=== PATIENT | male | born 1985 | race Caucasian/White ===

== ENCOUNTER → 2024-02-21 23:01 | Day surgery (SDC) | payer BC, SELFPAY ==
[2024-02-21 21:01] VITALS: BP 147/96
[2024-02-21] MEDS: GlucaGen 1 MG IV (22:19)
--- NOTE | 2024-02-21 22:48 | ED.GENMED ---
History of Present Illness
General
Chief Complaint: Throat Problem
Source: patient
Exam Limitations: none
Time Seen by Provider: 02/21/24 22:24
Nursing documentation reviewed up to this point in time: agreed with
Travel History
Have you had any contact with someone who has COVID-19?: No
Do you have any symptoms of coronavirus? Fever > 100 degrees, chills, cough, shortness of breath, sore throat, loss of taste or smell, muscle aches, or headache?: No
History of Present Illness
History of Present Illness:
38-year-old male with history of GERD who presents to the emergency department for evaluation after a piece of chicken became stuck when he swallowed it. He says he was eating a chicken breast tonight and he swallowed a large piece without
adequately chewing. He says that he felt to get stuck midway down his esophagus and has not been able to swallow since. He has been spitting up saliva. He has tried drinking soda and water without improvement. He waited about an hour and a half
before coming to the emergency room. He denies any coughing or choking, no breathing issues. Denies any other complaints.
Review of Systems
Review of Systems
All Other Systems: ROS reviewed and negative except as documented in HPI and ROS
ABD/GI: Reports nausea and other (Esophageal food bolus)
Phy Exam
Physical Exam
Physical Exam:
General: Awake, alert, oriented x3; sitting up spitting into basin
Head: Normocephalic, atraumatic
Eyes: Conjunctiva normal
Throat: Airway intact, handling secretions
Neck: Trachea midline, supple without meningismus
Lungs: Clear to auscultation bilaterally, no wheezing, rales, rhonchi
Heart: Regular rate and rhythm, no murmurs, gallops, or rubs
Abd: Soft, non distended, nontender
Neuro: No gross deficits
Extremities: Warm and well-perfused
Scores
Heart Failure Risk
Heart Failure Risk Score: Not Applicable
Heart Score for Chest Pain Patients
STEMI patient?: Not applicable
Withdrawal Assessment of Alcohol
Withdrawal Assessment Completed?: Not applicable
Course
Orders/Labs/Results
Orders:
Orders
02/21/24 22:11
Glucagon [GlucaGen] 1 mg .ROUTE .STK-MED ONE
02/21/24 22:18
Glucagon [GlucaGen] 1 mg IV NOW STA
Vital Signs
Initial and Last Documented VS:
Initial Vital Signs
Temp Pulse Resp BP Pulse Ox
37.4 C 72 16 147/96 99
02/21/24 21:01 02/21/24 21:01 02/21/24 21:01 02/21/24 21:01 02/21/24 21:01
Last Documented Vital Signs
Temp Pulse Resp BP Pulse Ox
37.4 C 72 16 147/96 99
02/21/24 21:01 02/21/24 21:01 02/21/24 21:01 02/21/24 21:01 02/21/24 21:01
MDM/Problems Addressed
Differential Diagnosis Includes:
Esophageal food bolus, esophagitis
MDM/Problems Addressed:
38-year-old male presents for evaluation of esophageal food bolus�swallowed a large piece of chicken and has felt it stuck in his throat since. Nothing to suggest airway compromise at this point he is protecting his airway. He is spitting up his
secretions into a basin. His vital signs are normal. Exam as above. We trialed a dose of IV glucagon 1 mg without success. Tried having him drink carbonated beverage again without success. Case discussed with gastroenterology will take to
endoscopy lab.
Chronic conditions affecting care:
GERD
*Pulse Oximetry
Patient hypoxic: no
*Critical Care Note
Total Time (30-74mins, 75-104mins- exclusive of procedures): Not Applicable
Data Reviewed
Source: patient
Patient Management
Discussion with other providers: [employer] (Discussed with gastroenterology)
Escalation/DeEscalation of care consider admission/obs:
To the GI lab
ED Attending Note
-
Portions of this chart may have been created with voice recognition software.� Occasional wrong word or��sound alike� substitutions may have occurred due to the inherent limitations of voice recognition software.
Discharge Plan
Departure
Patient Disposition: GI LAB
Date of Disposition: 02/21/24
Time of Disposition: 22:52
Admit to doctor: Wero
Presentation/result/management discussed w/ accepting MD/DO: GI
Discharge Problem:
Food impaction of esophagus
Instructions: Food Obstruction
Referrals:
Corona Landa, DO [Family Provider] -
Interventions
Interventions:
*Risk Screen - Suicide Last Done: 02/21/24 21:01
*General Assessment Last Done: 02/21/24 21:01
*Neglect/Abuse Screening Last Done: 02/21/24 21:01
ED- Fall Risk Assessment Last Done: 02/21/24 22:24
ED-EENT Assessment Last Done: 02/21/24 22:24
ED- Pulmonary Assessment Last Done: 02/21/24 22:24
Discharge Date and Time
Print Language: TAMAZIGHT
--- NOTE | 2024-02-21 23:25 | CON.GI ---
Consultation
-
Date/Time Consultation Performed: 02/21/24
Performing Provider: Garry Conteh MD
Reason for Consultation: food impaction
Medical History
Chief Complaint / HPI
Chief Complaint: Dysphagia
History of Present Illness:
The patient is a 38-year-old male with past medical history as noted who presents with foot impaction. 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
eosinophilic esophagitis. Been doing much better since being on PPI though tonight after eating a large piece of chicken had acute onset dysphagia and food impaction. He is unable to tolerate secretions now despite glucagon and other trials. He
denies any chest pain or shortness of breath. He denies any obvious food allergies. Denies any other major medical issues.
Past Medical History
Past Medical History: Other (GERD, questionable EOE)
Past Surgical History: None
Social History
Tobacco: Non-Smoker
Family History
Family History: Reviewed & Not Pertinent
Allergies / Home Medications
Allergy/AdvReac Type Severity Reaction Status Date / Time
Sulfa (Sulfonamide Allergy Unknown Unknown Verified 02/21/24 21:09
Antibiotics)
Review of Systems
Vital Signs
Temp Pulse Resp BP Pulse Ox
99.3 F 72 16 147/96 99
02/21/24 21:01 02/21/24 21:01 02/21/24 21:01 02/21/24 21:01 02/21/24 21:01
Physical Exam
Exam
General: No apparent distress
HEENT: Mucous membranes moist
Heart: Regular, no murmurs
Lungs: Clear to auscultation bilaterally
abdomen: Normal bowel sounds, soft, nontender
Results
Diagnostic Image Results:
Prior GI Procedures:
EGD:
Colonoscopy:
Assessment / Plan
-
1. Food impaction: Currently unable to tolerate secretions despite glucagon, with questionable EOE in the past. Will plan urgent EGD with food bolus removal. We discussed risks and benefits at length. We discussed PPI twice daily for 2 weeks
afterwards and plan probable repeat endoscopy in 6 to 8 weeks pending results of EGD.
-
-
Thank you for consultation and allowing me to participate in the patient's care. Please call the concierge GI physician during the after hours with any questions or concerns.
[2024-02-22 02:18] VITALS: BP 121/74; BP 147/96
[2024-02-22 02:30] VITALS: BP 123/78
[2024-02-22 02:45] VITALS: BP 130/86
[2024-02-22 02:56] VITALS: BP 130/86
[2024-02-22 03:00] VITALS: BP 119/83
== END ==
LOC: EMR 20:58 → SDS 23:01
PROVIDERS: ATTENDING PHYSICIAN Internal Medicine Gastroenterology; EMERGENCY PHYSICIAN Emergency Medicine; FAMILY PHYSICIAN Family Medicine
DX: T18.128A Food in esophagus causing other injury, initial encounter (principal); W44.F3XA Food entering into or through a natural orifice, initial encounter
CPT/HCPCS: 43247; 96374; 99284; J1610

== ENCOUNTER → 2024-04-01 06:34 | Day surgery (SDC) | payer BC, SELFPAY | LOC: GI 06:34 | PROVIDERS: ATTENDING PHYSICIAN Internal Medicine Gastroenterology; FAMILY PHYSICIAN Family Medicine | DX: K20.0 Eosinophilic esophagitis (principal); K22.89 Other specified disease of esophagus; K31.7 Polyp of stomach and duodenum; K31.89 Other diseases of stomach and duodenum; R13.10 Dysphagia, unspecified | CPT/HCPCS: 43249; 43239; 88305 ==

== ENCOUNTER → 2025-01-01 14:30 | Outpatient (REF) | payer BC, SELFPAY | LOC: HWRAD 14:30 | PROVIDERS: ATTENDING PHYSICIAN Nurse Practitioner Adult Health | DX: M79.671 Pain in right foot (principal) | CPT/HCPCS: 73630 ==

== ENCOUNTER → 2025-05-05 15:02 | Outpatient (REF) | payer BC, SELFPAY | LOC: HWRAD 15:02 | PROVIDERS: ATTENDING PHYSICIAN Family Medicine | DX: S22.24XA Fracture of xiphoid process, initial encounter for closed fracture (principal) | CPT/HCPCS: 71120 ==